=== PATIENT | female | born 1960 | race Caucasian/White ===

== ENCOUNTER 2019-12-29 08:45 | Day surgery (SDC) | payer MEDICAID, SELFPAY ==
[2019-12-28 11:14] VITALS: BMI 19.3
[2019-12-29] MEDS: sodium chloride 0.9% 1,000 ML 30 ML (09:21)
--- NOTE | 2019-12-29 09:36 | ANES.PREANE2 ---
Pre-Anesthetic Assessment Pre-Anesthetic Assessment: Height/Weight: Height 1.6 m Weight 49.442 kg Preop Diagnosis: Esophageal varices, screening colonoscopy Proposed Procedure: Operation Date: 12/29/19 09:45 Proposed Procedures p EGD/COLON(Not Applicable) - Siva Gr MD s Colonoscopy(Not Applicable) - Siva Gr MD Familial anesthetic complications: none Was Beta Logan taken within 24 hours: N/A Last intake: Intake Last Liquid Date 12/28/19 Last Liquid Time 22:00 Last Solid Date 12/27/19 Last Solid Time 23:59 Social: Social History: Alcohol (occassional) and Tobacco Packs per day: 1 Pack years: 40 Exam: Pre-Anes Outpt Exam: alert, oriented x 3, clear to auscultation bilaterally and regular rate & rhythm Airway: Submandibular: WNL Cervical ROM: WNL MP: 1 Dentition: Full History/ROS: No significant history except as noted Pulmonary: Pulmonary: BROCK CV/HEM: CV/HEM: None reported : : None reported Hepatic: Hepatic: Cirrohsis GI: GI: None reported Metabolic: Metabolic: None reported Musc/skel: Musc/skel: Weakness (all extremities) Neuropsych: Neuropsych: Depression Anesthetic Plan: ASA status: 3 Anesthesia: MAC Risk of > 500 ml blood loss (7ml/kg in children): No PFSH Anesthesia PFSH: Social History Smoking and tobacco status: current every day smoker Second hand smoke exposure: No Alcohol intake: never Adopted: No Caregiver/support person: Yes Lives independently: Yes Household members: none Housing: House Marital status: Single service: No Current occupational status: retired Current occupational exposures/hazards: No Pets and animals: No History of recent travel: No Sexually active: No Current gender identity: Female Forest/Orthodox: Mandaeism Special forest needs: No Agree to transfusion: No Financial difficulty paying for basics: Decline to Answer Data Anesthesia Cardiac Studies: No Data to Display
--- NOTE | 2019-12-29 10:13 | W.PM.OPSUD ---
Surgery/Procedure H&P Update DATE OF PROCEDURE: December 29, 2019 DATE H&P PERFORMED: 12/15/19 H&P UPDATE INFORMATION: I have reviewed H&P completed within last 30 days, I have examined patient prior to procedure and No changes to prior documentation PREOP DIAGNOSIS: Esophageal varices, screening colonoscopy PLANNED PROCEDURE: Operation Date: 12/29/19 09:45 Proposed Procedures p EGD/COLON(Not Applicable) - Siva Gr MD s Colonoscopy(Not Applicable) - Siva Gr MD
[2019-12-29 11:09] VITALS: BP 101/53; PULSE 81; RESP 16; TEMP 36.2; O2SAT 98
--- NOTE | 2019-12-29 11:13 | ANE.PACU2 ---
 Inpatient post-anesthesia follow up: Airway intact: Yes Vital signs: Temperature 97.1 F Pulse Rate 81 Respiratory Rate 16 Blood Pressure 101/53 Pulse Oximetry 98 Oxygen Delivery Me thod Nasal Cannula Oxygen Flow Rate 3 Fraction of Inspir ed Oxygen Hydration adequate: Yes Nausea and vomiting: No Pain level: 1 Mental status: Baseline
[2019-12-29 11:23] VITALS: BP 109/60; PULSE 74; RESP 18; O2SAT 100
== END 2019-12-29 11:45 | disposition home or self-care (01) ==
PROVIDERS: PCP Family Medicine; Visit Provider Surgery
PROC: 0DJ08ZZ Inspection of Upper Intestinal Tract, Via Natural or Artificial Opening Endoscopic (ICD-10-PCS; CPT 43235; principal; 2019-12-29 09:45)
PROC: 0DJD8ZZ Inspection of Lower Intestinal Tract, Via Natural or Artificial Opening Endoscopic (ICD-10-PCS; CPT 45378; 2019-12-29 09:45)
DX: Z12.11 Encounter for screening for malignant neoplasm of colon (principal); I85.00 Esophageal varices without bleeding; D12.2 Benign neoplasm of ascending colon; D12.0 Benign neoplasm of cecum; D12.4 Benign neoplasm of descending colon; D12.5 Benign neoplasm of sigmoid colon; D12.3 Benign neoplasm of transverse colon; Z85.43 Personal history of malignant neoplasm of ovary; Z80.0 Family history of malignant neoplasm of digestive organs; K57.30 Diverticulosis of large intestine without perforation or abscess without bleeding; F17.210 Nicotine dependence, cigarettes, uncomplicated
CPT/HCPCS: 12345; 43235; 45380; 45385; 88305; J2001; J2704; J7030

== ENCOUNTER 2022-07-02 01:33 | Emergency (ER) | payer MEDICARE, MEDICAID, SELFPAY ==
[2022-07-02] VITALS (7 sets, daily range): BP systolic 79–107; BP diastolic 55–65; PULSE 66–85; RESP 15–20; TEMP 36.4–36.8; O2SAT 94–96; BMI 22.3
--- NOTE | 2022-07-02 01:54 | CTR_ITS ---
PROCEDURE INFORMATION: Exam: CT Abdomen And Pelvis Without Contrast Exam date and time: 07/02/2022 2:22 AM Age: 62 years old Clinical indication: Prior surgery; Surgery type: Gb. Tips. Hernia repair. Hysterectomy. Patient HX: Hematemesis with rectal bleeding. History of hemachromatosis. ; Additional info: Blood in stool/pain TECHNIQUE: Imaging protocol: Computed tomography of the abdomen and pelvis without contrast. Radiation optimization: All CT scans at this facility use at least one of these dose optimization techniques: automated exposure control; mA and/or kV adjustment per patient size (includes targeted exams where dose is matched to clinical indication); or iterative reconstruction. COMPARISON: CT abdomen pelvis w con* [id number] 07/01/2018 12:28 PM RADIATION DOSE METRICS: Total DLP (mGy-cm): 392.86 FINDINGS: Lungs: The visualized portions of the lung bases are normal. Liver: The non-contrast enhanced liver appears unremarkable. Gallbladder and bile ducts: Status post prior cholecystectomy no biliary ductal dilatation. Pancreas: The non-contrast enhanced pancreas appears grossly unremarkable. No ductal dilation. Spleen: The non-contrast enhanced spleen appears unremarkable. No splenomegaly. Adrenal glands: Unremarkable non-contrast CT appearance of the adrenals. No definte masses. Kidneys and ureters: The left kidney is noted to be absent. Hypertrophy of the right kidney is seen. There are no contour deforming renal masses on the noncontrast CT. There is no right hydronephrosis, ureterectasis or ureteral calculi. Stomach and bowel: The noncontrast opacified stomach appears unremarkable. Suspected tiny hiatal hernia.The noncontrast opacified small bowel loops appear unremarkable. The noncontrast opacified loops of colon show some increased attenuation fluid in the colon, most prominent in the ascending colon. There is poor distension of the sigmoid colon and rectum, which limits assessment. The lack of orally administered contrast material limits assessment. Appendix: No evidence of appendicitis. Intraperitoneal space: Minimal right perihepatic, subhepatic and pericolic gutter region ascites is seen. No pneumoperitoneum. No loculated fluid collections. Multiple unchanged surgical clips are seen in the retroperitoneum and pelvic sidewall regions. Radiopaque density is also seen in the left upper abdominal region near the gastroesophageal junction. Recommend correlation with surgical history. There are numerous benign phleboliths in the pelvis. Vasculature: No abdominal aortic aneurysm. Lymph nodes: No enlarged lymph nodes. Urinary bladder: The bladder is not well distended with relative mild bladder wall prominence. If there is clinical concern for cystitis, recommend correlation with urinalysis findings. Reproductive: Status post prior hysterectomy. Bones/joints: No acute osseous abnormality seen. [id number] bilateral hip, moderate symphysis pubis and moderate sacroiliac joint degenerative changes are seen. Soft tissues: Tiny umbilical hernia is seen, containing peritoneal fat. CT/CT abdomen pelvis wo con [id number] IMPRESSION: 1. Nonspecific minimal right perihepatic, subhepatic and paracolic gutter region ascites. 2. Some nonspecific increased attenuation fluid in the colon, most prominent in the ascending colon. 3. Absent left kidney with hypertrophy of the right kidney. No hydronephrosis. Postsurgical changes with multiple surgical clips in the retroperitoneum and pelvic sidewall regions. Recommend correlation with surgical history.
--- NOTE | 2022-07-02 02:01 | W.ED.GIBLEED ---
HPI - GI Bleed General: Chief complaint: GI Bleed Stated complaint: Vomiting Blood Time Seen by Provider: 07/02/22 01:34 Source: patient and EMS Mode of arrival: EMS Limitations: no limitations History of Present Illness: 62-year-old female states that tonight she started having vomiting blood along with large amount of bright red blood in her stool. States she had 1 episode of vomiting blood and was admitted 3-4 episodes of blood in her stool states she is felt weak and lightheaded as well. States she did have a GI bleed back in had no issues since then she denies any pain she is not on any blood thinners. Associated symptoms: Denies abdominal pain, chills, easy bruising, fever(s), headache(s), nausea, rash or vomiting Review of Systems Const: Reports: fatigue; Denies: fever(s), chills, body aches or change in appetite Eyes: Denies: blurry vision or eye discomfort ENMT: Denies: throat pain or dental pain Card: Denies: chest pain Resp: Denies: dyspnea GI: Reports: hematemesis and hematochezia; Denies: abdominal pain, nausea, vomiting or diarrhea : Denies: dysuria Musc: Denies: neck pain or back pain Skin/Breast: Denies: rash Neuro: Denies: headache(s) Psych: Denies: depression Ted/Lymph: Denies: easy bruising All/Imm: Denies: urticaria PFS ED PFSH: Medical History (Updated 07/02/22 @ 05:14 by Sidney Grant MD) Anxiety Cirrhosis due to hemochromatosis Esophageal varices Hemochromatosis Neuropathy Ovarian cancer Surgical History History of cholecystectomy History of esophagogastroduodenoscopy (EGD) (11/05/19) 01/09/2020: Normal History of hernia repair History of hysterectomy History of tubal ligation S/P TIPS (transjugular intrahepatic portosystemic shunt) Status post colonoscopy Status post colonoscopy with polypectomy Recommend follow-up colonoscopy in 2020 Family History Father Cancer colon cancer Denies family history of Anesthesia complication Bleeding disorder Social History Smoking and tobacco status: current every day smoker Second hand smoke exposure: No Alcohol intake: never Adopted: No Caregiver/support person: Yes Lives independently: Yes Household members: none Housing: House Marital status: Single service: No Current occupational status: retired Current occupational exposures/hazards: No Pets and animals: No History of recent travel: No Sexually active: No Current gender identity: Female Indigo/Mormon: Restoration Special indigo needs: No Agree to transfusion: No Financial difficulty paying for basics: Decline to Answer Physical Exam Const: COMMON NORMALS: patient oriented x3 HENMT: COMMON NORMALS: normocephalic and atraumatic HEAD & SCALP: normocephalic and atraumatic Eye: COMMON NORMALS: Equal, round and reactive pupils present and EOMs intact bilaterally PUPIL: Yes Equal, round and reactive pupils present Neck/C-Spine: COMMON NORMALS: full ROM and supple Chest: COMMONS NORMALS: normal inspection of the chest and normal palpation of entire chest wall Resp: COMMON NORMALS: normal respiratory effort, No retractions, No use of accessory muscles and clear to auscultation bilaterally AUSCULTATION: clear to auscultation bilaterally Cardio: COMMON NORMALS: regular rate, regular rhythm and No murmurs present (Cardio) RATE: regular rate RHYTHM: regular rhythm GI: COMMON NORMALS: Normal to inspection, nondistended, normoactive bowel sounds present, Soft to palpation, non-tender and no masses PALPATION: Yes Soft to palpation OTHER: Bright red blood in stool Extremity: COMMON NORMALS: normal to inspection and full ROM Neuro: COMMON NORMALS: patient oriented x3, moves all extremities and no focal motor deficits Psych: COMMON NORMALS: mental status grossly normal, Normal thought process present and cooperative THOUGHT PROCESS: Normal thought process present Skin: COMMON NORMALS: no rashes or lesions noted and no wounds GENERAL SKIN EXAM: no rashes or lesions noted Course Vital Signs: Vital signs: Vital Signs Temperature 97.5 F L 07/02/22 01:35 Pulse Rate 72 07/02/22 05:00 Respiratory Rate 16 07/02/22 05:00 Blood Pressure 87/55 07/02/22 05:00 Pulse Oximetry 94 07/02/22 05:00 Oxygen Delivery Me thod 07/02/22 05:00 MDM - GI Bleed Medical Decision Making Patient presents here with a lower GI bleed she has had multiple bloody stools here she was originally hypotensive her blood pressure here is improved after IV fluids has a slight elevated lactate as well her hemoglobin here has been stable CT scan shows no acute or maladies I spoke to hospitalist who will admit also spoke to surgeon who was consulted. Lab Data : 07/02/22 02:48 07/02/22 02:02 Radiology Impressions Abdomen/Pelvis CT 07/02/22 01:54 IMPRESSION: 1. Nonspecific minimal right perihepatic, subhepatic and paracolic gutter region ascites. 2. Some nonspecific increased attenuation fluid in the colon, most prominent in the ascending colon. 3. Absent left kidney with hypertrophy of the right kidney. No hydronephrosis. Postsurgical changes with multiple surgical clips in the retroperitoneum and pelvic sidewall regions. Recommend correlation with surgical history. Laboratory Results WBC 20.9 10^3/uL (4.0-10.0) H 07/02/22 02:02 RBC 3.78 10^6/uL (4.1-5.3) L 07/02/22 02:02 Hgb 13.0 g/dL (11.5-15.3) 07/02/22 02:48 Hct 39.1 % (37.0-47.0) 07/02/22 02:48 MCV 110.8 fl (81-99) H 07/02/22 02:02 MCH 37.0 pg (28.0-34.0) H 07/02/22 02:02 MCHC 33.4 g/dL (30.0-36.0) 07/02/22 02:02 RDW 13.5 % (12.1-15.1) 07/02/22 02:02 Plt Count 141 10^3/cmm (130-400) 07/02/22 02:02 MPV 10.5 fL (7.4-10.4) H 07/02/22 02:02 Neut % (Auto) 78.5 % 07/02/22 02:02 Lymph % (Auto) 14.2 % 07/02/22 02:02 [place] % (Auto) 6.5 % 07/02/22 02:02 Eos % (Auto) 0.1 % 07/02/22 02:02 Baso % (Auto) 0.2 % 07/02/22 02:02 Neut # (Auto) 16.43 10^3/uL (1.8-7.7) H 07/02/22 02:02 Lymph # (Auto) 3.0 10^3/uL (0.8-4.8) 07/02/22 02:02 [place] # (Auto) 1.4 10^3/uL (0.2-0.9) H 07/02/22 02:02 Eos # (Auto) 0.0 10^3/uL (0.0-0.8) 07/02/22 02:02 Baso # (Auto) 0.1 10^3/uL (0.0-0.1) 07/02/22 02:02 Nucleated RBC % (auto) 0 % 07/02/22 02:02 Nucleated RBCs # 0.0 /100WBC 07/02/22 02:02 PT 18.00 SECONDS (12.1-14.9) H 07/02/22 02:02 INR 1.45 (0.8-1.2) H 07/02/22 02:02 Sodium 139 mmol/L (136-145) 07/02/22 02:02 Potassium 3.8 mmol/L (3.5-5.1) 07/02/22 02:02 Chloride 101 mmol/L (98-107) 07/02/22 02:02 Carbon Dioxide 29 mmol/L (22-29) 07/02/22 02:02 Anion Gap 12.8 (5-19) 07/02/22 02:02 BUN 7 mg/dL (8-23) L 07/02/22 02:02 Creatinine 0.5 mg/dL (0.5-0.9) 07/02/22 02:02 GFR Calculation 124.6 mL/min (90-130) 07/02/22 02:02 Glucose 131 mg/dL (65-115) H 07/02/22 02:02 Calculated Osmolality 288 mOsm/kg (285-295) 07/02/22 02:02 Lactic Acid 3.5 mmol/L (0.5-2.2) H 07/02/22 02:02 Calcium 8.5 mg/dL (8.5-10.5) 07/02/22 02:02 Total Bilirubin 1.6 mg/dL (0.15-1.2) H 07/02/22 02:02 AST 28 U/L (0-32) 07/02/22 02:02 ALT 13 U/L (0-33) 07/02/22 02:02 Alkaline Phosphatase 129 U/L (35-105) H 07/02/22 02:02 Total Protein 6.3 g/dL (6.6-8.7) L 07/02/22 02:02 Albumin 3.4 g/dL (3.5-5.2) L 07/02/22 02:02 Globulin 2.9 g/dL (1.3-4.6) 07/02/22 02:02 Blood Type AB Positive 07/02/22 02:48 Rho(D) Type Positive 07/02/22 02:48 Antibody Screen Negative 07/02/22 02:48 Discharge Plan Discharge Patient Disposition: Admitted As Inpatient Clinical Impression: Lower gastrointestinal hemorrhage Condition: Stable Prescriptions: No Action folic acid 1 mg tablet 1 mg PO DAILY thiamine HCl (vitamin B1) 100 mg tablet 100 mg PO DAILY alprazolam 1 mg tablet See Rx Instructions PO DAILY PRN (Reason: Anxiety) Rx Instructions: 0.5-1 tablet PO daily PRN; furosemide 20 mg tablet 20 mg PO DAILY PRN (Reason: Edema) Referrals: Madison Olivia DO [Primary Care Provider] - Coding Level of Care Code ED Roaster Operator for Shalonda Fwd Exam Comprehensive
[2022-07-02 02:22] LABS: Basophils # 0.1 10^3/uL (0.0-0.1); Basophils % 0.2 %; Eosinophils % 0.1 %; Hematocrit 41.9 % (37.0-47.0); Lymphocytes % 14.2 %; Mean Corpuscular HGB Conc 33.4 g/dL (30.0-36.0); Mean Corpuscular Volume 110.8 fl (81-99); Mean Platelet Volume 10.5 fL (7.4-10.4); Monocytes # 1.4 10^3/uL (0.2-0.9); Monocytes % 6.5 %; Neutrophils # 16.43 10^3/uL (1.8-7.7); Neutrophils % 78.5 %; Nucleated Red Blood Cells % 0 %; Platelet Count 141 10^3/cmm (130-400); Red Blood Count 3.78 10^6/uL (4.1-5.3); Red Cell Distribution Width 13.5 % (12.1-15.1); White Blood Count 20.9 10^3/uL (4.0-10.0)
[2022-07-02 02:41] LABS: INR 1.45 (0.8-1.2)
[2022-07-02] MEDS: sodium chloride 0.9% 1,000 ML 999 ML IV ×2 (02:42→04:08)
[2022-07-02] MEDS: pantoprazole 40 mg SDV 80 MG IVP (02:43)
[2022-07-02 02:47] LABS: Alanine Aminotransferase 13 U/L (0-33); Albumin Level 3.4 g/dL (3.5-5.2); Alkaline Phosphatase 129 U/L (35-105); Anion Gap 12.8 (5-19); Aspartate Amino Transferase 28 U/L (0-32); Blood Urea Nitrogen 7 mg/dL (8-23); Calcium 8.5 mg/dL (8.5-10.5); Carbon Dioxide 29 mmol/L (22-29); Chloride 101 mmol/L (98-107); Globulin 2.9 g/dL (1.3-4.6); Glomerular Filtration Rate 124.6 mL/min (90-130); Glucose 131 mg/dL (65-115); Osmolality Calculated 288 mOsm/kg (285-295); Potassium 3.8 mmol/L (3.5-5.1); Sodium 139 mmol/L (136-145); Total Bilirubin 1.6 mg/dL (0.15-1.2); Total Protein 6.3 g/dL (6.6-8.7)
[2022-07-02 03:01] LABS: Hematocrit 39.1 % (37.0-47.0)
[2022-07-02 03:29] LABS: Lactic Sepsis W/Reflex 3.5 mmol/L (0.5-2.2)
--- NOTE | 2022-07-02 05:29 | XRR_ITS ---
PROCEDURE INFORMATION: Exam: XR Chest Exam date and time: 07/02/2022 5:39 AM Age: 62 years old Clinical indication: Pain; Chest pressure; Prior surgery; Surgery type: Gb; Patient HX: C/O chest discomfort with new onset of hypotension while in er. ; Additional info: Cp TECHNIQUE: Imaging protocol: Radiologic exam of the chest. Views: 1 view. COMPARISON: CT abdomen pelvis wo con [id number] 07/02/2022 2:22 AM FINDINGS: Lungs: There are normal lung volumes without interstitial or airspace opacities. Pleural spaces: There are no pleural effusions or pneumothorax. Heart/Mediastinum: The heart size is normal. There is a mildly tortuous thoracic aorta. The trachea is in the midline. Bones/joints: No acute abnormalities. XR/XR chest 1V portable [id number] IMPRESSION: No chest radiographic evidence of acute cardiopulmonary disease.
[2022-07-02 05:34] LABS: Hematocrit 30.7 % (37.0-47.0); Hemoglobin 9.8 g/dL (11.5-15.3)
[2022-07-02] MEDS: piperacillin-tazobactam 3.375 GM in sodium chloride 0.9% (plus) 50 ML IV (05:46)
[2022-07-02] MEDS: sodium chloride 0.9% 500 ML 999 ML IV ×3 (05:46→06:42)
--- NOTE | 2022-07-02 05:54 | ED_ITS ---
HPI - GI Bleed General: Chief complaint: GI Bleed Stated complaint: Vomiting Blood Time Seen by Provider: 07/02/22 01:34 Source: patient and EMS Mode of arrival: EMS Limitations: no limitations History of Present Illness: . [facility] PFSH: Medical History (Updated 07/02/22 @ 05:14 by Sidney Grant MD) Anxiety Cirrhosis due to hemochromatosis Esophageal varices Hemochromatosis Neuropathy Ovarian cancer Surgical History History of cholecystectomy History of esophagogastroduodenoscopy (EGD) (11/05/19) 01/09/2020: Normal History of hernia repair History of hysterectomy History of tubal ligation S/P TIPS (transjugular intrahepatic portosystemic shunt) Status post colonoscopy Status post colonoscopy with polypectomy Recommend follow-up colonoscopy in 2020 Family History Father Cancer colon cancer Denies family history of Anesthesia complication Bleeding disorder Social History Smoking and tobacco status: current every day smoker Second hand smoke exposure: No Alcohol intake: never Adopted: No Caregiver/support person: Yes Lives independently: Yes Household members: none Housing: House Marital status: Single service: No Current occupational status: retired Current occupational exposures/hazards: No Pets and animals: No History of recent travel: No Sexually active: No Current gender identity: Female Indigo/Islam: Presybeterian Special indigo needs: No Agree to transfusion: No Financial difficulty paying for basics: Decline to Answer Course Vital Signs: Vital signs: Vital Signs Temperature 97.5 F L 07/02/22 01:35 Pulse Rate 72 07/02/22 05:00 Respiratory Rate 16 07/02/22 05:00 Blood Pressure 87/55 07/02/22 05:00 Pulse Oximetry 94 07/02/22 05:00 Oxygen Delivery Me thod 07/02/22 05:00 MDM - GI Bleed Medical Decision Making This is addendum to the other note that was signed patient's hemoglobin did drop after a large bloody bowel movement here patient been seen down in the ER by the hospitalist she had a history of a large gastric ulcer bleed in the past that required a resection questionable she had a variceal bleed she is unsure. We will transfuse blood here I did speak to [facility] will transfer there for higher level of care with GI capability. Lab Data : 07/02/22 05:30 07/02/22 02:02 Radiology Impressions Abdomen/Pelvis CT 07/02/22 01:54 IMPRESSION: 1. Nonspecific minimal right perihepatic, subhepatic and paracolic gutter region ascites. 2. Some nonspecific increased attenuation fluid in the colon, most prominent in the ascending colon. 3. Absent left kidney with hypertrophy of the right kidney. No hydronephrosis. Postsurgical changes with multiple surgical clips in the retroperitoneum and pelvic sidewall regions. Recommend correlation with surgical history. Laboratory Results WBC 20.9 10^3/uL (4.0-10.0) H 07/02/22 02:02 RBC 3.78 10^6/uL (4.1-5.3) L 07/02/22 02:02 Hgb 9.8 g/dL (11.5-15.3) L 07/02/22 05:30 Hct 30.7 % (37.0-47.0) L 07/02/22 05:30 MCV 110.8 fl (81-99) H 07/02/22 02:02 MCH 37.0 pg (28.0-34.0) H 07/02/22 02:02 MCHC 33.4 g/dL (30.0-36.0) 07/02/22 02:02 RDW 13.5 % (12.1-15.1) 07/02/22 02:02 Plt Count 141 10^3/cmm (130-400) 07/02/22 02:02 MPV 10.5 fL (7.4-10.4) H 07/02/22 02:02 Neut % (Auto) 78.5 % 07/02/22 02:02 Lymph % (Auto) 14.2 % 07/02/22 02:02 [place] % (Auto) 6.5 % 07/02/22 02:02 Eos % (Auto) 0.1 % 07/02/22 02:02 Baso % (Auto) 0.2 % 07/02/22 02:02 Neut # (Auto) 16.43 10^3/uL (1.8-7.7) H 07/02/22 02:02 Lymph # (Auto) 3.0 10^3/uL (0.8-4.8) 07/02/22 02:02 [place] # (Auto) 1.4 10^3/uL (0.2-0.9) H 07/02/22 02:02 Eos # (Auto) 0.0 10^3/uL (0.0-0.8) 07/02/22 02:02 Baso # (Auto) 0.1 10^3/uL (0.0-0.1) 07/02/22 02:02 Nucleated RBC % (auto) 0 % 07/02/22 02:02 Nucleated RBCs # 0.0 /100WBC 07/02/22 02:02 PT 18.00 SECONDS (12.1-14.9) H 07/02/22 02:02 INR 1.45 (0.8-1.2) H 07/02/22 02:02 Sodium 139 mmol/L (136-145) 07/02/22 02:02 Potassium 3.8 mmol/L (3.5-5.1) 07/02/22 02:02 Chloride 101 mmol/L (98-107) 07/02/22 02:02 Carbon Dioxide 29 mmol/L (22-29) 07/02/22 02:02 Anion Gap 12.8 (5-19) 07/02/22 02:02 BUN 7 mg/dL (8-23) L 07/02/22 02:02 Creatinine 0.5 mg/dL (0.5-0.9) 07/02/22 02:02 GFR Calculation 124.6 mL/min (90-130) 07/02/22 02:02 Glucose 131 mg/dL (65-115) H 07/02/22 02:02 Calculated Osmolality 288 mOsm/kg (285-295) 07/02/22 02:02 Lactic Acid 3.5 mmol/L (0.5-2.2) H 07/02/22 02:02 Calcium 8.5 mg/dL (8.5-10.5) 07/02/22 02:02 Total Bilirubin 1.6 mg/dL (0.15-1.2) H 07/02/22 02:02 AST 28 U/L (0-32) 07/02/22 02:02 ALT 13 U/L (0-33) 07/02/22 02:02 Alkaline Phosphatase 129 U/L (35-105) H 07/02/22 02:02 Total Protein 6.3 g/dL (6.6-8.7) L 07/02/22 02:02 Albumin 3.4 g/dL (3.5-5.2) L 07/02/22 02:02 Globulin 2.9 g/dL (1.3-4.6) 07/02/22 02:02 Blood Type AB Positive 07/02/22 02:48 Rho(D) Type Positive 07/02/22 02:48 Antibody Screen Negative 07/02/22 02:48 Crossmatch See Detail 07/02/22 02:48 Critical Care Time Critical Care Time: Critical Care Time: Yes Total Critical Care Time: 50 Attestation: The high probability of a clinically significant, sudden or life threatening deterioration of the patient's gi system(s) required my full and direct attention, intervention and personal management. The critical care time is as shown. This time is in addition to time spent performing any reported procedures but includes the following: [x] Data and vital sign review and interpretation [x] Patient assessment, examination and intervention [x] Documentation [x] Medication orders and management Discharge Plan Discharge Patient Disposition: Xfer Short-Term Hosp Clinical Impression: Lower gastrointestinal hemorrhage Condition: Stable Referrals: Madison Olivia DO [Primary Care Provider] - Coding Level of Care Code ED Stroke Belt Sander Operator for Shalonda Galeas
--- NOTE | 2022-07-02 06:02 | PM.HP ---
Providers/Chief Complaint Primary Care Provider: Madison Olivia DO Chief Complaint: Vomiting Blood History of Present Illness Sherie Sood is a 62 year old female with a family history of hereditary hemochromatosis, has received therapeutic phlebotomies in the past, liver cirrhosis, history of TIPS procedure for GI bleed, history of hematemesis due to esophageal varices, history of gastric ulcers requiring surgical intervention, requiring gastric clipping, history of lower GI bleed, due to colonic polyps which were tubular adenomas was supposed to follow-up in a year, history of ovarian cancer status post hysterectomy/BSO and chemotherapy who presents [facility] due to bloody vomit, and bloody stools. Patient tells me that she has had hematemesis, and bloody stools in the past. She tells me the very first time she had hematemesis, she actually had to be transferred to [facility] for a TIPS procedure she thinks at that time she also had an esophageal varices bleed. She is not sure if she had esophageal band ligation at that time. She tells me that she also had an episode of GI bleed requiring repair of a gastric ulcer, she shows me the large hernia that she developed from the surgical procedure, she tells me that clipping was also required, she has had some GI bleed since then, but she saw a surgeon at [facility] who advised her against surgical intervention due to high complication rate, since then she has had multiple EGDs, and colonoscopies. She has had colonoscopy and EGD through Dr. Gr, has been found to have a soft esophageal varices, and polyps were found. During her examination in the emergency room, she had a large bloody bowel movement, with associated hypotension. During my exam nation she is alert oriented x3, she is clear covered in bloody stool, her blood pressure is 87/55, she is receiving fluids, alert oriented x3. I advised patient that currently she is in hemorrhagic shock, findings concern for possible brisk upper versus lower GI bleed. I discussed my concerns given her prior history, I would recommend transfer to tertiary level center for evaluation given her comorbidities. Patient voiced understanding, all questions answered, agreed to proceed. I also advised emergency room, Dr. Davis will arrange transfer to tertiary level center -For hemorrhagic shock secondary to GI bleed -Keep patient n.p.o. -She has 2 units prepared, will receive, 1 unit FFP -Receiving a liter bolus, start fluids at 150 cc -Protonix drip, octreotide drip -Levophed to maintain MAP greater than 65 -Monitor hemodynamics very closely -Recommend transfer to tertiary level center -Patient is full code, Review of Systems Card: Denies: chest pain Resp: Denies: dyspnea GI: Denies: abdominal pain Medications/Allergies Home Medications Medication Instructions Recorded Confirmed Last Taken Type alprazolam 1 mg tablet See Rx Instructions PO DAILY PRN 12/13/19 01/10/20 12/10/19 History Anxiety folic acid 1 mg tablet 1 mg PO DAILY 12/13/19 01/10/20 12/28/19 History furosemide 20 mg tablet 20 mg PO DAILY PRN Edema 12/13/19 01/10/20 Unknown History thiamine HCl (vitamin B1) 100 mg 100 mg PO DAILY 12/13/19 01/10/20 12/28/19 History tablet Allergies Allergy/AdvReac Type Severity Reaction Status Date / Time No Known Allergies Allergy Verified 01/10/20 15:49 PFSH Acute PFSH: Medical History (Updated 07/02/22 @ 06:15 by Brayan Alejandro MD) Anxiety Cirrhosis due to hemochromatosis Esophageal varices Hemochromatosis Neuropathy Ovarian cancer Surgical History History of cholecystectomy History of esophagogastroduodenoscopy (EGD) (11/05/19) 01/09/2020: Normal History of hernia repair History of hysterectomy History of tubal ligation S/P TIPS (transjugular intrahepatic portosystemic shunt) Status post colonoscopy Status post colonoscopy with polypectomy Recommend follow-up colonoscopy in 2020 Family History Father Cancer colon cancer Denies family history of Anesthesia complication Bleeding disorder Social History Smoking and tobacco status: current every day smoker Second hand smoke exposure: No Alcohol intake: never Adopted: No Caregiver/support person: Yes Lives independently: Yes Household members: none Housing: House Marital status: Single service: No Current occupational status: retired Current occupational exposures/hazards: No Pets and animals: No History of recent travel: No Sexually active: No Current gender identity: Female Indigo/Episcopalian: Baptism Special indigo needs: No Agree to transfusion: No Financial difficulty paying for basics: Decline to Answer Vitals/I&O/Wt Last Vital Signs Temp 97.5 F L 07/02/22 01:35 Pulse 72 07/02/22 05:00 Resp 16 07/02/22 05:00 BP 87/55 07/02/22 05:00 Pulse Ox 94 07/02/22 05:00 O2 Del Method 07/02/22 05:00 07/01/22 07/01/22 07/02/22 14:59 22:59 06:59 Intake Total 1999 Balance 1999 Weight last 48 hrs Weight 57.153 kg Physical Exam Const: COMMON NORMALS: no acute distress HENMT: COMMON NORMALS: normocephalic HEAD & SCALP: normocephalic Resp: COMMON NORMALS: normal respiratory effort, No retractions, No use of accessory muscles and clear to auscultation bilaterally AUSCULTATION: clear to auscultation bilaterally Cardio: COMMON NORMALS: regular rate, regular rhythm, S1 normal heart sound present and S2 normal heart sound present RATE: regular rate RHYTHM: regular rhythm HEART SOUNDS: S1 normal heart sound present and S2 normal heart sound present GI: COMMON NORMALS: Normal to inspection, nondistended, normoactive bowel sounds present, Soft to palpation, non-tender and No hepatosplenomegaly present Extremity: COMMON NORMALS: no pedal edema Neuro: COMMON NORMALS: patient oriented x3 Psych: COMMON NORMALS: mental status grossly normal Data : 07/02/22 05:30 07/02/22 02:02 A&P Assessment and plan (1) Hemorrhagic shock: Status: Acute (2) GI bleed: Status: Acute Plan GI bleed, with hemorrhagic shock Attestations Medical Necessity Statement*: Patient will be transferred for higher level center for evaluation of hemorrhagic shock GI bleed Coding Level of Care Code Acute Process Line Operator for Shalonda Galeas Diagnoses Hemorrhagic shock R57.8 GI bleed K92.2
[2022-07-02] MEDS: pantoprazole 40 MG in sodium chloride 0.9% (plus) 100 ML 20 MG IV (06:42)
[2022-07-02] MEDS: octreotide 100 mcg/mL SDV 50 MCG IVP (06:42)
--- NOTE | 2022-07-02 07:05 | PC.NURSE ---
BLOOD ISSUED AT 0557 BLOOD TRANSFUSION STARTED AT 0642
--- NOTE | 2022-07-02 07:07 | PC.NURSE ---
BLOOD RECEIVED AT 0557 BLOOD TRANSFUSION STARTED AT 06
== END 2022-07-02 06:42 | disposition short-term general hospital (02) ==
PROVIDERS: Emergency Provider Emergency Medicine; PCP Family Medicine
DX: K92.2 Gastrointestinal hemorrhage, unspecified (principal)
CPT/HCPCS: 36415; 36430; 71045; 74176; 80053; 83605; 85014; 85018; 85025; 85610; 86850; 86900; 86920; 87040; 96361; 96365; 96375; 99291; 99292; C9113; J2354; J2543; J7030; J7040; P9016